=== PATIENT | female | born 1950 | race Caucasian/White ===

== ENCOUNTER 2017-03-02 10:37 | Observation (INO) | payer MEDICARE, BC ==
[~2017-03-02] VITALS: Ht 152.4 cm; Wt 65.0 kg
[~2017-03-02 10:37] MED LIST: AMLO1CAP15 PO; ASPI81TA3 PO; CILO100T PO; CIPR500T4 PO; CLON-379 PO; FENO134C PO; METR250T PO; MONT10TA24 PO; NO HOME MEDICATIONS; SERT50TA PO; ZOLP5TAB7 PO
[2017-03-02] MEDS ORDERED: morphine 4 MG/ML VIAL IV STA (10:49)
[2017-03-02] MEDS ORDERED: ONDANSETRON 4 MG INJ IV STA (10:49)
[2017-03-02 11:35] LABS: BASOPHILS % 0.9 % (0.0-2.0); EOSINOPHILS % 1.2 % (0.0-7.0); HEMATOCRIT 36.1 % (37.0-47.0); HEMOGLOBIN 11.9 g/dl (12.0-16.0); LYMPHOCYTES # 1.6 10^3/ul (0.8-2.9); LYMPHOCYTES % 45.3 % (15.0-51.0); MEAN CORPUSCULAR HEMOGLOBIN 28.4 pg (29.0-33.0); MEAN CORPUSCULAR VOLUME 86.2 fl (82.0-101.0); MONOCYTE # 0.2 10^3/ul (0.3-0.9); MONOCYTES % 6.1 % (0.0-11.0); NEUTROPHILS % 42.4 % (39.0-77.0); PLATELET COUNT 230 10^3/UL (140-415); RED BLOOD COUNT 4.19 10^6/ul (4.20-5.40); RED CELL DISTRIBUTION WIDTH 15.6 % (11.5-14.5); WHITE BLOOD COUNT 3.4 10^3/ul (4.8-10.8)
[2017-03-02 11:42] LABS: ADD UMIC NO; UR ASCORBIC ACID NEGATIVE (NEGATIVE); UR BILIRUBIN (Dip) NEGATIVE (NEGATIVE); UR BLOOD (Dip) NEGATIVE (NEGATIVE); UR CLARITY CLEAR (CLEAR); UR COLOR COLORLESS (YELLOW); UR GLUCOSE (Dip) 1+ mg/dL (NEGATIVE); UR KETONES (Dip) NEGATIVE (NEGATIVE); UR LEUKOCYTE ESTERASE (Dip) NEGATIVE Leu/ul (NEGATIVE); UR NITRITE (Dip) NEGATIVE (NEGATIVE); UR SPECIFIC GRAVITY (Dip) 1.003 (1.003-1.030); UR TOTAL PROTEIN (Dip) NEGATIVE (NEGATIVE); UR UROBILINOGEN (Dip) NEGATIVE (NEGATIVE)
[2017-03-02 11:58] LABS: INR 0.84; PROTIME 11.5 Sec (12.2-14.2); PT RATIO 0.9
[2017-03-02 11:59] LABS: PARTIAL THROMBOPLASTIN TIME 25.3 Sec (25.0-35.0)
[2017-03-02 12:01] LABS: ALANINE AMINOTRANSFERASE 28 IU/L (13-69); ALBUMIN 4.2 g/dl (3.3-4.9); ALBUMIN/GLOBULIN RATIO 1.68; ALKALINE PHOSPHATASE 73 IU/L (42-121); ANION GAP 21 (8-16); ASPARTATE AMINO TRANSFERASE 23 IU/L (15-46); BILIRUBIN,INDIRECT 0.5 mg/dl (0-1.1); BILIRUBIN,TOTAL 0.5 mg/dl (0.2-1.3); BLOOD UREA NITROGEN 11 mg/dl (7-20); CALCIUM 9.7 mg/dl (8.4-10.2); CARBON DIOXIDE 24 mmol/L (21-31); CHLORIDE 101 mmol/L (97-110); GLUCOSE 204 mg/dl (70-220); POTASSIUM 3.9 mmol/L (3.5-5.1); SODIUM 142 mmol/L (135-144); TOTAL PROTEIN 6.7 g/dl (6.1-8.1)
[2017-03-02] MEDS ORDERED: METO50TA16 PO (12:05)
[2017-03-02] MEDS ORDERED: HYDR-3671 PO (12:05)
[2017-03-02] MEDS ORDERED: IBUP800T25 PO (12:06)
[2017-03-02] MEDS ORDERED: METF500T4 PO (12:06)
[2017-03-02] MEDS ORDERED: LORA1TAB PO (12:07)
[2017-03-02] MEDS ORDERED: AMLO1CAP14 PO (12:07)
[2017-03-02] MEDS ORDERED: MECL-77 PO (12:07)
--- NOTE | 2017-03-02 12:12 | RADRPT ---
PROCEDURE: XR Chest. CLINICAL INDICATION: Chest pain TECHNIQUE: A single portable view of the chest was obtained. COMPARISON: 05/29/2016 FINDINGS: The right chest wall port is seen with the tip in the atrial caval junction. The cardiomediastinal silhouette is within normal limits. The lungs and pleural spaces are clear. The soft tissues and o sseous structures are unremarkable. IMPRESSION: No acute cardiopulmonary disease. RPTAT: HPNM Physician Ana Date Time Electronically viewed and signed by Physician Ana on 03/02/2017 12:11 /
[2017-03-02 12:17] LABS: TROPONIN-I < 0.012 ng/ml (0.00-0.12)
[2017-03-02] MEDS ORDERED: SOD CHLORIDE 0.9% 100 ML ONE (13:03)
[2017-03-02] MEDS ORDERED: IOHEXOL 100 ML ONE (13:03)
--- NOTE | 2017-03-02 13:10 | ERA ---
ER Documentation Chief Complaint Date/Time DATE: 03/02/17 TIME: 13:04 Chief Complaint BIBA FOR NON RADIATING CP STARTED TODAY HPI 66-year-old female with a history of hypertension, diabetes, and recently diagnosed esophageal cancer stage II on chemotherapy presenting with gradual onset chest pain, substernal, initially radiating to her back and bilateral shoulders, 10 out of 10. She received aspirin and nitroglycerin in the ambulance with improvement of her pain to 8 out of 10. She denies any radiation at this time but does feel a substernal chest pressure. She has associated shortness of breath. She denies any associated abdominal pain but does endorse nausea without vomiting. No fevers or chills. Per her daughter, the patient is unaware of her diagnosis and asked me to not tell her. ROS All systems reviewed and are negative except as per history of present illness. Medications Home Meds Active Scripts Metronidazole* (Flagyl*) 250 Mg Tablet, 250 MG PO Q8 for 7 Days, #28 TAB Prov:NERY WASHBURN MD 05/31/16 Ciprofloxacin Hcl* (Ciprofloxacin Hcl*) 500 Mg Tablet, 500 MG PO BID@06,18 for 7 Days, #14 TAB Prov:NERY WASHBURN MD 05/31/16 Reported Medications Meclizine Hcl* (Meclizine Hcl*) 25 Mg Tablet, 25 MG PO Q8H Y for DIZZINESS, TAB 03/02/17 Lorazepam* (Lorazepam*) 1 Mg Tablet, 1 MG PO DAILY Y for ANXIETY, #30 TAB 03/02/17 Amlodipine-Benazepril (Amlodipine-Benazepril) 5-40 Mg Capsule, 1 TAB PO DAILY, # 30 TAB 03/02/17 Metformin* (Glucophage*) 500 Mg Tab, 500 MG PO BID WITH MEALS, #30 TAB 03/02/17 Ibuprofen* (Ibuprofen*) 800 Mg Tablet, 800 MG PO Q6H Y for PAIN, TAB 03/02/17 Metoprolol Succinate* (Toprol XL*) 50 Mg Tab.er.24h, 50 MG PO DAILY, #30 TAB 03/02/17 Hydralazine Hcl* (Hydralazine Hcl*) 25 Mg Tab, 25 MG PO Q8, #90 TAB 03/02/17 Sertraline Hcl* (Zoloft*) 50 Mg Tablet, 50 MG PO DAILY, TAB 4/7/15 Aspirin* (Aspirin* Chew) 81 Mg Tab.chew, 81 MG PO DAILY, TAB.CHEW 10/19/14 Cilostazol* (Cilostazol*) 100 Mg Tablet, 100 MG PO BID, TAB 10/19/14 Fenofibrate, Micronized (Fenofibrate) 134 Mg Capsule, 134 MG PO DAILY, CAP 10/19/14 Montelukast Sodium* (Montelukast Sodium*) 10 Mg Tablet, 10 MG PO HS, TAB 10/19/14 Zolpidem Tartrate* (Zolpidem Tartrate*) 5 Mg Tablet, 5 MG PO HS Y, TAB 10/19/14 Clonidine Hcl* (Clonidine Hcl*) 0.1 Mg Tab, 0.1 MG PO Q6 Y for ELEVATED BLOOD PRESSURE, TAB 10/19/14 Amlodipine-Benazepril (Amlodipine-Benazepril) 10-40 Mg Capsule, 1 TAB PO DAILY, TAB 10/19/14 Allergies Allergies: Coded Allergies: No Known Allergy (Verified , 07/04/15) PMhx/Soc History of Surgery: Yes ("ovaries removed") Anesthesia Reaction: No Hx Neurological Disorder: No Hx Respiratory Disorders: Yes (Asthma) Hx Cardiac Disorders: No Hx Psychiatric Problems: No Hx Miscellaneous Medical Probl: No Hx Alcohol Use: No Hx Substance Use: No Hx Tobacco Use: No Smoking Status: Never smoker FmHx Family History: No coronary disease Physical Exam Vitals Vital Signs Date Time Temp Pulse Resp B/P Pulse Ox O2 Delivery O2 Flow Rate FiO2 03/02/17 10:59 Nasal Cannula 2 03/02/17 10:46 98.2 84 20 155/80 98 Physical Exam Const: Tearful, no significant distress, nontoxic Head: Atraumatic Eyes: Normal Conjunctiva ENT: Normal External Ears, Nose and Mouth. Neck: Full range of motion..~ No meningismus. Resp: Clear to auscultation bilaterally Cardio: Right-sided pacemaker palpated. Regular rate and rhythm, no murmurs. 2+ distal pulses in all 4 extremities Abd: Soft, non tender, non distended. No pulsatile abdominal mass. No masses palpated. Normal bowel sounds Skin: No petechiae or rashes Back: No midline or flank tenderness Ext: No cyanosis, or edema. No calf tenderness Neur: Awake and alert and oriented 3, strength and sensations intact, speech normal, cranial nerves intact Psych: Normal Mood and Affect Result Diagram: 03/02/17 1115 03/02/17 1115 Results 24 hrs Laboratory Tests Test 03/02/17 11:10 03/02/17 11:15 Urine Color COLORLESS Urine Clarity CLEAR Urine pH 7.0 Urine Specific [place] 1.003 Urine Ketones NEGATIVEmg/dL Urine Nitrite NEGATIVEmg/dL Urine Bilirubin NEGATIVEmg/dL Urine Urobilinogen NEGATIVEmg/dL Urine Leukocyte Esterase NEGATIVELeu/ul Urine Hemoglobin NEGATIVEmg/dL Urine Glucose 1+mg/dL Urine Total Protein NEGATIVEmg/dl White Blood Count 3.410^3/ul Red Blood Count 4.1910^6/ul Hemoglobin 11.9g/dl Hematocrit 36.1% Mean Corpuscular Volume 86.2fl Mean Corpuscular Hemoglobin 28.4pg Mean Corpuscular Hemoglobin Concent 33.0g/dl Red Cell Distribution Width 15.6% Platelet Count 64159^3/UL Mean Platelet Volume 11.0fl Neutrophils % 42.4% Lymphocytes % 45.3% Monocytes % 6.1% Eosinophils % 1.2% Basophils % 0.9% Nucleated Red Blood Cells % 0.0/100WBC Neutrophils # (Manual) 110^3/ul Lymphocytes # 1.610^3/ul Monocytes # 0.210^3/ul Eosinophils # 0.010^3/ul Basophils # 0.010^3/ul Nucleated Red Blood Cells # 0.010^3/ul Prothrombin Time 11.5Sec Prothrombin Time Ratio 0.9 INR International Normalized Ratio 0.84 Activated Partial Thromboplast Time 25.3Sec Sodium Level 142mmol/L Potassium Level 3.9mmol/L Chloride Level 101mmol/L Carbon Dioxide Level 24mmol/L Anion Gap 21 Blood Urea Nitrogen 11mg/dl Creatinine 0.70mg/dl Glucose Level 204mg/dl Calcium Level 9.7mg/dl Total Bilirubin 0.5mg/dl Direct Bilirubin 0.00mg/dl Indirect Bilirubin 0.5mg/dl Aspartate Amino Transf (AST/SGOT) 23IU/L Alanine Aminotransferase (ALT/SGPT) 28IU/L Alkaline Phosphatase 73IU/L Troponin I < 0.012ng/ml Total Protein 6.7g/dl Albumin 4.2g/dl Globulin 2.50g/dl Albumin/Globulin Ratio 1.68 Lipase 101U/L Current Medications Medications (Trade) Dose Ordered Sig/Dominick Route PRN Reason Start Time Stop Time Status Last Admin Dose Admin Morphine Sulfate (morphine) 4 mg ONCE STAT IV 03/02/17 10:49 03/02/17 10:51 DC 03/02/17 11:20 Ondansetron HCl (Zofran Inj) 4 mg ONCE STAT IV 03/02/17 10:49 03/02/17 10:51 DC 03/02/17 11:20 IV Flush 10 ml 10 ml STK-MED ONCE .ROUTE 03/02/17 13:03 03/02/17 13:04 DC 03/02/17 13:35 Sodium Chloride 100 ml @ ud STK-MED ONCE .ROUTE 03/02/17 13:03 03/02/17 13:04 DC 03/02/17 13:35 Iohexol (Omnipaque) 100 ml @ ud STK-MED ONCE .ROUTE 03/02/17 13:03 03/02/17 13:04 DC 03/02/17 13:36 Ondansetron HCl (Zofran Inj) 4 mg ER BRIDGE PRN IV NAUSEA AND/OR VOMITING 03/02/17 14:00 03/03/17 13:59 Acetaminophen (Tylenol Tab) 650 mg ER BRIDGE PRN PO MILD PAIN/FEVER 03/02/17 14:00 03/03/17 13:59 Procedures/MDM EMERGENT LABS AND DIAGNOSTIC STUDIES: Lab Results above were reviewed and interpreted by me. CBC: Mild leukopenia, mild anemia CMP: No evidence of electrolyte abnormality, renal failure, hypoglycemia, liver failure, or biliary obstruction Troponin within normal limits UA: no evidence of infection 12-lead EKG was interpreted by Oscar Alanis MD: Normal Sinus Rhythm Normal axis Normal intervals No acute ST or T wave changes suggestive of acute ischemia or STEMI. Radiology Results as interpreted by Radiology below were reviewed by Nubia Alanis MD: Chest x-ray: No acute cardiopulmonary disease. CTPA: No evidence of pulmonary embolism or dissection Initial Nursing notes reviewed. Previous Medical Records requested via the Electronic Health Record. EMERGENCY DEPARTMENT COURSE / MEDICAL DECISION MAKING: Patients symptoms are concerning for a cardiac etiology. Other etiologies considered were PE, aortic dissection, pneumonia, pneumothorax, esophageal rupture. EKG showed no acute ischemia. Initial troponin negative. CXR grossly unremarkable without evidence of pneumomediastinum. I considered esophageal perforation, however I have a low suspicion for this. Also given her history of cancer, CTPA was ordered to evaluate for PE and was negative. Patient is at high risk of adverse events. Upon reevaluation, her pain is improved after morphine. However, Patient is not safe for discharge and will need inpatient monitoring and further evaluation. Further workup will be deferred to the inpatient team. Accepting Care Team: Current data and ongoing care discussed. Time: Time of admission Primary Provider: Dung Kenny Consulting: none Outstanding Data: none Departure Diagnosis: Primary Impression: Chest pain Qualified Code: R07.89 - Other chest pain Condition: Serious VANDA ALANIS MD Mar 02, 2017 13:10
--- NOTE | 2017-03-02 13:36 | RADRPT ---
PROCEDURE: CTA Chest. CLINICAL INDICATION: eval for PE TECHNIQUE: The study was performed utilizing a multidetector CT scanner. Direct spiral 1 mm axial sections were obtained from the thoracic inlet to the upper abdomen with the use of 100 cc of Omnipa que 350 nonionic intravenous contrast material and reformatted at 3 mm. Coronal reformations were ob tained. The images were reviewed on a PACS workstation. CT D I 17 mCi. Dose 259 mCi per centimeter COMPARISON: No prior studies are available for comparison. FINDINGS: There is no central or peripheral pulmonary embolism. Thoracic aorta demonstrates minimal mural mike cification with no dissection or aneurysm. No pleural or pericardial effusion is seen. There is no hilar or mediastinal adenopathy or mass. No lung infiltrate or nodule is present. There is a righ t IJ Port-A-Cath with the tip in the superior vena cava. No upper abdominal or adrenal mass is visualized. There is no axillary, supraclavicular or internal mammary chain adenopathy. No lytic or blastic lesions are seen. IMPRESSION: No pulmonary embolism. No aortic dissection or aneurysm. No lung infiltrate or mass. .Eliot Pierre MD, Date Time Electronically viewed and signed by .Eliot Pierre MD, on 03/02/2017 13:35 .A/
[2017-03-02] MEDS ORDERED: ONDANSETRON 4 MG INJ IV PRN ×2 (14:00→15:00)
[2017-03-02] MEDS ORDERED: ACETAMINOPHEN 325 MG TAB PO PRN ×2 (14:00→15:00)
[2017-03-02] MEDS ORDERED: NACL 0.9% 3 ML SYG IV SCH (15:00)
[2017-03-02] MEDS ORDERED: ACETAMINOPHEN 650 MG SUPP PR PRN (15:00)
[2017-03-02] MEDS ORDERED: GLUCOSE GEL 15 GRAM TUBE BUCCAL PRN (15:00)
[2017-03-02] MEDS ORDERED: ZOLPIDEM 5 MG TAB PO PRN (15:00)
[2017-03-02] MEDS ORDERED: GLUCAGON 1 MG INJ IM PRN (15:00)
[2017-03-02] MEDS ORDERED: HYDROCODONE/APAP (5/325) TAB PO PRN ×2 (15:00)
[2017-03-02] MEDS ORDERED: GLUCOSE GEL 15 GRAM TUBE PO PRN ×2 (15:00)
[2017-03-02] MEDS ORDERED: DEXTROSE 50% 50 ML SYRINGE IV PRN ×2 (15:00)
[2017-03-02] MEDS ORDERED: DOCUSATE SODIUM 100 MG CAP PO PRN (15:00)
[2017-03-02] MEDS ORDERED: IBUPROFEN 800 MG TAB PO PRN (15:00)
[2017-03-02] MEDS ORDERED: MAGNESIUM HYDROXIDE 30ML CUP PO PRN (15:00)
[2017-03-02] MEDS ORDERED: morphine 2 MG INJ IV PRN (15:00)
[2017-03-02] MEDS ORDERED: MECLIZINE 25 MG TAB PO PRN (15:00)
[2017-03-02] MEDS ORDERED: BISACODYL 10 MG SUPP PR PRN (15:00)
--- NOTE | 2017-03-02 15:22 | HP ---
Date/Time of Note Date/Time of Note DATE: 03/02/17 TIME: 15:14 Assessment/Plan VTE Prophylaxis VTE Prophylaxis Intervention: SCD's Lines/Catheters IV [facility]ter Type [facility]from [facility] Saline Lock Assessment/Plan Chief Complaint/Hosp Course Impression and plan 1. Chest pain. Rule out ACS. Troponins to be monitored. We will follow-up results. Initial were negative. Follow-up on echocardiogram. Box Estimator follow. 2. Essential hypertension. Medications to be adjusted. Elevated at this time. 3. Dyslipidemia. Follow-up on fasting lipid panel. Continue on antilipid medication 4. Diabetes. Follow-up on A1c. Continue insulin regimen. 5. History of gastric cancer. Patient tentatively planned for chemotherapy On March 04, 2017. Patient follow-up with her oncologist Dr. Rucker 6. Anemia and leukopenia secondary to #5. Patient on chemotherapy. Monitor level for now. Stable at present. Admission process 40 minutes Discussed plan of care with Dr. Badillo Problems: HPI/ROS Admit Date/Time Admit Date/Time Hx of Present Illness This is a 66-year-old female with history of asthma, hypertension, dyslipidemia , diabetes, reported new diagnosis of gastric cancer stage II (follows up with Dr. Escobar)who did come to [facility] due to reports of chest pain. Patient did report that her chest pain started at 11 AM this morning. She reported that she was in her chest pain was substernal and radiated to her back or shoulders and was pressure-like and squeezing-like in nature. She reports her pain was 10 out of 10 and reported that this is the first time this ever happened to her. No reports of shortness of breath associated. She subsequently went to [facility] for further evaluation. Upon examination Patient was noted with initial troponin that was negative. Additionally her chest x-ray showed no acute cardiopulmonary disease process and CTA of her chest also showed no pulmonary embolism or aortic dissection or aneurysm and no lung infiltrate or mass. Patient also initially came in with a blood pressure as high as 171/61. Initial BMP unremarkable and she was noted to be slightly leukopenic as well as anemic. Of note patient did have her last chemotherapy about a month ago. Possibility of her anemia is from chemotherapy. We will evaluate her for the aformentioned issues ROS 12 point review of systems obtained and entirely negative except that mentioned in the history of present illness PMH/Family/Social Past Medical History asthma, hypertension, dyslipidemia, diabetes, reported no history of gastric cancer stage II Family History Significant Family History: no pertinent family hx Social History Alcohol Use: none Smoking Status: Never smoker Drug Use: none Exam/Review of Systems Vital Signs Vitals Vital Signs Date Time Temp Pulse Resp B/P Pulse Ox O2 Delivery O2 Flow Rate FiO2 03/02/17 14:40 74 16 171/61 100 Room Air 03/02/17 10:59 2 03/02/17 10:46 98.2 Exam Constitutional: alert, oriented Psych: anxiety Head: normocephalic Neck: No jvd Respiratory: clear to auscultation, normal air movement Gastrointestinal: soft, tender (Minimally on palpation of right lower quadrant) Musculoskeletal: nl extremities to inspection, nl gait and stance Extremities: normal pulses Neurological: DATA STORAGE SPECIALIST II-XII intact, nl mental status, nl speech Labs Result Diagram: 03/02/17 1115 03/02/17 1115 Medications Medications Current Medications Aspirin (Aspirin) 81 mg DAILY PO ; Start 03/03/17 at 09:00; Status UNV Cilostazol (Pletal) 100 mg BID PO ; Start 03/02/17 at 21:00; Status UNV Hydralazine HCl (Apresoline) 25 mg Q8 PO ; Start 03/02/17 at 22:00; Status UNV Ibuprofen (Motrin) 800 mg Q6H PRN PO PAIN; Start 03/02/17 at 15:00; Status UNV Meclizine HCl (Antivert) 25 mg Q8H PRN PO DIZZINESS; Start 03/02/17 at 15:00; Status UNV Metoprolol Succinate (Toprol Xl) 50 mg DAILY PO ; Start 03/03/17 at 09:00; Status UNV Montelukast Sodium (Singulair) 10 mg HS PO ; Start 03/02/17 at 21:00; Status UNV Sertraline HCl (Zoloft) 50 mg DAILY PO ; Start 03/03/17 at 09:00; Status UNV Zolpidem Tartrate (Ambien) 5 mg HS PRN PO insomnia; Start 03/02/17 at 15:00; Status UNV Miscellaneous Information 1 tab DAILY PO ; Start 03/03/17 at 09:00; Status UNV Miscellaneous Information 134 mg DAILY PO ; Start 03/03/17 at 09:00; Status UNV Benazepril HCl (Lotensin) 40 mg DAILY PO ; Start 03/03/17 at 09:00; Status UNV Amlodipine Besylate (Norvasc) 5 mg DAILY PO ; Start 03/03/17 at 09:00; Status UNV Ondansetron HCl (Zofran Inj) 4 mg Q6H PRN IV NAUSEA AND/OR VOMITING; Start at 15:00; Status UNV Acetaminophen (Tylenol Tab) 650 mg Q6H PRN PO PAIN LEVEL 1-3 OR FEVER; Start at 15:00; Status UNV Acetaminophen (Tylenol Supp) 650 mg Q6H PRN [place] PAIN LEVEL 1-3 OR FEVER; Start 03/02/17 at 15:00; Status UNV Acetaminophen/ Hydrocodone Bitart ([place] (5/325)) 1 tab Q6H PRN PO MODERATE PAIN LEVEL 4-6; Start 03/02/17 at 15:00; Status UNV Acetaminophen/ Hydrocodone Bitart ([place] (5/325)) 2 tab Q6H PRN PO SEVERE PAIN LEVEL 7-10; Start 03/02/17 at 15:00; Status UNV Morphine Sulfate (morphine) 2 mg Q4H PRN IV SEVERE PAIN LEVEL 7-10; Start 03/02 at 15:00; Status UNV Docusate Sodium (Colace) 100 mg Q12H PRN PO CONSTIPATION; Start 03/02/17 at 15: 00; Status UNV Magnesium Hydroxide (Milk Of Mag) 30 ml DAILY PRN PO CONSTIPATION; Start at 15:00; Status UNV Bisacodyl (Dulcolax Supp) 10 mg DAILY PRN [place] CONSTIPATION; Start 03/02/17 at 15 :00; Status UNV Pantoprazole (Protonix Iv) 40 mg DAILY@06 IV ; Start 03/03/17 at 06:00; Status UNV RICHARD MARTINEZ Mar 02, 2017 15:22 RICHARD MARTINEZ Mar 02, 2017 15:22
[2017-03-02 16:15] VITALS: BP 137/65; PULSE 60; RESP 16
[2017-03-02 16:24] VITALS: PULSE 66
[2017-03-02 16:35] VITALS: Ht 152.4 cm; Wt 65.0 kg
[2017-03-02] MEDS: INSULIN ASPART [NOVOLOG] 3 ML PEN SC SCH ×2 (17:13→21:00)
[2017-03-02 18:06] LABS: CREATINE KINASE 59 IU/L (23-200)
[2017-03-02 18:41] LABS: CK-MB < 0.22 ng/ml (0.0-2.4); TROPONIN-I < 0.012 ng/ml (0.00-0.12)
[2017-03-02 20:05] VITALS: PULSE 68
[2017-03-02] MEDS ORDERED: MONTELUKAST 10 MG TAB PO SCH (21:00)
[2017-03-02 21:22] VITALS: BP 133/73; RESP 16
[2017-03-02] MEDS: CILOSTAZOL 100 MG TAB PO SCH (21:30)
[2017-03-02 23:59] LABS: CREATINE KINASE 50 IU/L (23-200)
[2017-03-03] VITALS (10 sets, daily range): BP systolic 99–129; BP diastolic 55–59; PULSE 66–79; RESP 16–81
[2017-03-03 00:15] LABS: CK-MB < 0.22 ng/ml (0.0-2.4); TROPONIN-I < 0.012 ng/ml (0.00-0.12)
[2017-03-03] MEDS ORDERED: ACCU-CHEK XX SCH (02:00)
[2017-03-03] MEDS ORDERED: PANTOPRAZOLE 40 MG INJ IV SCH (06:00)
[2017-03-03 07:37] LABS: BASOPHILS % 1.2 % (0.0-2.0); EOSINOPHILS # 0.1 10^3/ul (0.0-0.5); EOSINOPHILS % 2.1 % (0.0-7.0); HEMATOCRIT 33.8 % (37.0-47.0); HEMOGLOBIN 10.9 g/dl (12.0-16.0); LYMPHOCYTES # 1.3 10^3/ul (0.8-2.9); MEAN CORPUSCULAR HEMOGLOBIN 27.9 pg (29.0-33.0); MEAN CORPUSCULAR HGB CONC 32.2 g/dl (32.0-37.0); MEAN CORPUSCULAR VOLUME 86.4 fl (82.0-101.0); MONOCYTE # 0.4 10^3/ul (0.3-0.9); MONOCYTES % 13.4 % (0.0-11.0); NEUTROPHILS % 43.1 % (39.0-77.0); PLATELET COUNT 217 10^3/UL (140-415); RED BLOOD COUNT 3.91 10^6/ul (4.20-5.40); RED CELL DISTRIBUTION WIDTH 15.9 % (11.5-14.5); WHITE BLOOD COUNT 3.3 10^3/ul (4.8-10.8)
[2017-03-03 07:59] LABS: ALBUMIN 3.6 g/dl (3.3-4.9); ALBUMIN/GLOBULIN RATIO 1.8; BILIRUBIN,INDIRECT 0.5 mg/dl (0-1.1); BILIRUBIN,TOTAL 0.5 mg/dl (0.2-1.3); CALCIUM 9.3 mg/dl (8.4-10.2); CREATININE 0.89 mg/dl (0.44-1.00); MAGNESIUM 2.1 mg/dl (1.7-2.5); PHOSPHORUS 4.8 mg/dl (2.5-4.9); TOTAL PROTEIN 5.6 g/dl (6.1-8.1)
[2017-03-03] MEDS: INSULIN ASPART [NOVOLOG] 3 ML PEN SC SCH ×2 (08:00→12:00)
[2017-03-03 08:29] LABS: THYROID STIMULATING HORMONE 2.74 MIU/L (0.465-4.680)
[2017-03-03] MEDS ORDERED: ASPIRIN 81 MG TAB PO SCH (09:00)
[2017-03-03] MEDS ORDERED: FENOFIBRATE 145 MG TAB PO SCH (09:00)
[2017-03-03] MEDS ORDERED: BENAZEPRIL 40 MG TAB PO SCH (09:00)
[2017-03-03] MEDS ORDERED: SERTRALINE 50 MG TAB PO SCH (09:00)
[2017-03-03] MEDS ORDERED: METOPROLOL (XL) 50 MG TAB PO SCH (09:00)
[2017-03-03] MEDS ORDERED: AMLODIPINE 5 MG TAB PO SCH ×2 (09:00)
[2017-03-03] MEDS: CILOSTAZOL 100 MG TAB PO SCH (09:07)
[2017-03-03] MEDS ORDERED: PANT40TA3 PO (09:38)
[2017-03-03] MEDS ORDERED: AMLO1CAP14 PO (09:38)
--- NOTE | 2017-03-03 09:43 | PDOCDIS ---
Discharge Instructions DIAGNOSIS Discharge Diagnosis 1. Atypical chest pain 2. Essential hypertension 2. Discontinue 4. History of diabetes 5. History of gastric cancer 5. Anemia and leukopenia secondary to #5 CONDITION Patient Condition: Stable HOME CARE INSTRUCTIONS: Special Diet: 1800 calorie, carbohydrate controlled FOLLOW UP/APPOINTMENTS Follow-up Plan 1. Follow up with Dr. Escobar on 03/04/17 RICHARD MARTINEZ Mar 03, 2017 09:43
[2017-03-04] MEDS ORDERED: PANTOPRAZOLE (EC) 40 MG TAB PO SCH (06:00)
--- NOTE | 2017-03-04 08:15 | RADRPT ---
Echocardiogram Report Patient Name: ROSLYN JACKSON Gender: Female Date: 1950 Study Date: 03-Mar-2017 Power Systems Engineer: [place] Location: Ref. Physician: RICHARD MARTINEZ Quality: Adequate Procedures: Transthoracic echocardiogram with complete 2D, M-Mode, and Doppler examination. Indications: Chest Pain. 2D/M Mode Doppler Measurement Value Normal Ranges Measurement Value Normal Ranges AoR Diam MM 2.8 cm AV Peak Benjamin 1.8 m/sec LVIDd 2D 3.5 3.5 - 5.6 cm AV Peak PG 12.5 mmHg LVIDs 2D 1.9 2.1 - 4.1 cm LVOT Peak Benjamin 1.2 m/sec LVPWd 2D 1.2 0.6 - 1.1 cm LVOT Peak PG 5.5 mmHg IVSd 2D 1.2 0.6 - 1.1 cm MV E Peak Benjamin 0.5 m/sec EDV 2D 49.2 cm3 MV A Peak Benjamin 0.8 m/sec ESV 2D 6.9 cm3 MV E/A 0.6 LA Dimen 2D 3.1 2.3 - 4.0 cm MV Decel Time 300 msec MV Decel Garvin 2 MV E/A 0.6 PV Peak Benjamin 1.3 m/sec PV Peak PG 7.0 mmHg Findings Left Ventricle: Hyperdynamic left ventricular systolic function. Normal left ventricular cavity size. Mild concentric left ventricular hypertrophy. Ejection fraction is visually estimated at 70 %. Tissue Doppler/Mitral Doppler indices are consistent with impaired relaxation (Stage I diastolic dysfunction). E/E`=4. E`=0 cm/s. Right Ventricle: Normal right ventricular size. Normal right ventricular systolic function. Left Atrium: The left atrium is normal in size. Right Atrium: The right atrium is normal in size. Atrial Septum: Normal atrial septum. Mitral Valve: Normal appearance of the mitral valve. No mitral valve regurgitation is seen. Aortic Valve: No significant aortic stenosis or insufficiency. Normal trileaflet aortic valve structure. Tricuspid Valve: Normal appearance of the tricuspid valve. There is trace tricuspid regurgitation. Pulmonic Valve: Normal pulmonic valve appearance. No evidence of pulmonic regurgitation. Pericardium: Normal pericardium with no significant pericardial effusion. Aorta: Normal aortic root. IVC: Normal size and normal respiratory collapse consistent with normal right atrial pressure. Pulmonary Artery: Normal pulmonary artery size. Conclusions 1.Hyperdynamic left ventricular systolic function. Normal left ventricular cavity size. Mild concentric left ventricular hypertrophy. Ejection fraction is visually estimated at 70 %. Tissue Doppler/Mitral Doppler indices are consistent with impaired relaxation (Stage I diastolic dysfunction). E/E`=4. E`=0 cm/s. 2.Normal appearance of the mitral valve. No mitral valve regurgitation is seen. 3.No significant aortic stenosis or insufficiency. Normal trileaflet aortic valve structure. 4.Normal appearance of the tricuspid valve. There is trace tricuspid regurgitation. 5.Normal size and normal respiratory collapse consistent with normal right atrial pressure. Electronically Signed By: Yeison Tao 04-Mar-2017 08:14:54 -0700 Patient Name: ROSLYN JACKSON Study Date: 03-Mar-2017 [id number]
--- NOTE | 2017-03-05 16:58 | DS ---
Date/Time of Note Date/Time of Note DATE: 03/05/17 TIME: 16:48 Discharge Summary Admission/Discharge Info Admit Date/Time Mar 02, 2017 at 13:59 Discharge Date/Time Mar 03, 2017 at 18:50 Discharge Diagnosis 1. Atypical chest pain 2. Essential hypertension 2. Discontinue 4. History of diabetes 5. History of gastric cancer 5. Anemia and leukopenia secondary to #5 Patient Condition: Stable Hx of Present Illness This is a 66-year-old female with history of asthma, hypertension, dyslipidemia , diabetes, reported new diagnosis of gastric cancer stage II (follows up with Dr. Escobar)who did come to [facility] due to reports of chest pain. Patient did report that her chest pain started at 11 AM this morning. She reported that she was in her chest pain was substernal and radiated to her back or shoulders and was pressure-like and squeezing-like in nature. She reports her pain was 10 out of 10 and reported that this is the first time this ever happened to her. No reports of shortness of breath associated. She subsequently went to [facility] for further evaluation. Upon examination Patient was noted with initial troponin that was negative. Additionally her chest x-ray showed no acute cardiopulmonary disease process and CTA of her chest also showed no pulmonary embolism or aortic dissection or aneurysm and no lung infiltrate or mass. Patient also initially came in with a blood pressure as high as 171/61. Initial BMP unremarkable and she was noted to be slightly leukopenic as well as anemic. Of note patient did have her last chemotherapy about a month ago. Possibility of her anemia is from chemotherapy. We will evaluate her for the aformentioned issues Hospital Course This is a 66-year-old female with history of asthma, hypertension, dyslipidemia , diabetes, new history of gastric cancer stage II, who came to [facility] due to reports of chest pain. Patient did report her chest pain started around 11 AM on the morning of her admission. She reported that her chest pain substernal and radiated to her back and did have some burning kind of sensation that was also mixed with pressure-like feelings. She reported that this is the first time this ever happened to her. She did come to [facility] for further evaluation. Upon examination she had a chest x-ray that was negative for any acute cardiopulmonary process. CTA of her chest was also negative for any pulmonary embolism or aortic dissection. She initially had a blood pressure as high as 171/61. She did have serial troponins drawn which were all additionally her echocardiogram did show her to have an EF of 70%. ACS was ruled out and likely patient's chest pain was from acid reflux. During the course of stay she did improve. She was resumed on antihypertensives for hypertension and insulin for diabetes. Patient and family were instructed to follow-up with oncologist chemotherapy regimen per her oncologist on March 04, 2017. The plan of care was discussed with the patient and patient did verbalize her understanding. On the day of discharge patient was in stable condition Discussed plan of care with Dr. Badillo [facility] Active Scripts Pantoprazole* (Protonix*) 40 Mg Tablet.dr, 40 MG PO DAILY, #30 TAB Prov:RICHARD MARTINEZ 03/03/17 Amlodipine-Benazepril (Amlodipine-Benazepril) 5-40 Mg Capsule, 1 TAB PO DAILY, # 30 TAB Prov:RICHARD MARTINEZ 03/03/17 Metronidazole* (Flagyl*) 250 Mg Tablet, 250 MG PO Q8 for 7 Days, #28 TAB Prov:NERY WASHBURN MD 05/31/16 Ciprofloxacin Hcl* (Ciprofloxacin Hcl*) 500 Mg Tablet, 500 MG PO BID@06,18 for 7 Days, #14 TAB Prov:NERY WASHBURN MD 05/31/16 Reported Medications Meclizine Hcl* (Meclizine Hcl*) 25 Mg Tablet, 25 MG PO Q8H Y for DIZZINESS, TAB 03/02/17 Lorazepam* (Lorazepam*) 1 Mg Tablet, 1 MG PO DAILY Y for ANXIETY, #30 TAB 03/02/17 Metformin* (Glucophage*) 500 Mg Tab, 500 MG PO BID WITH MEALS, #30 TAB 03/02/17 Ibuprofen* (Ibuprofen*) 800 Mg Tablet, 800 MG PO Q6H Y for PAIN, TAB 03/02/17 Metoprolol Succinate* (Toprol XL*) 50 Mg Tab.er.24h, 50 MG PO DAILY, #30 TAB 03/02/17 Hydralazine Hcl* (Hydralazine Hcl*) 25 Mg Tab, 25 MG PO Q8, #90 TAB 03/02/17 Sertraline Hcl* (Zoloft*) 50 Mg Tablet, 50 MG PO DAILY, TAB 10/19/14 Aspirin* (Aspirin* Chew) 81 Mg Tab.chew, 81 MG PO DAILY, TAB.CHEW 10/19/14 Cilostazol* (Cilostazol*) 100 Mg Tablet, 100 MG PO BID, TAB 10/19/14 Fenofibrate, Micronized (Fenofibrate) 134 Mg Capsule, 134 MG PO DAILY, CAP 10/19/14 Montelukast Sodium* (Montelukast Sodium*) 10 Mg Tablet, 10 MG PO HS, TAB 10/19/14 Zolpidem Tartrate* (Zolpidem Tartrate*) 5 Mg Tablet, 5 MG PO HS Y, TAB 10/19/14 Clonidine Hcl* (Clonidine Hcl*) 0.1 Mg Tab, 0.1 MG PO Q6 Y for ELEVATED BLOOD PRESSURE, TAB 10/19/14 Discontinued Reported Medications Amlodipine-Benazepril (Amlodipine-Benazepril) 10-40 Mg Capsule, 1 TAB PO DAILY, TAB 10/19/14 Follow-up Plan 1. Follow up with your oncologist on 03/04/17 Primary Care Provider Keanu Escobar Time spent on discharge: > 30 minutes RICHARD MARTINEZ Mar 05, 2017 16:58
== END 2017-03-03 18:50 | disposition home or self-care (01) ==
LOC: E/R 10:37 → MS4 13:59
PROVIDERS: ADMIT Internal Medicine; ATTEND Internal Medicine
DX: R07.89 Other chest pain (principal); I10 Essential (primary) hypertension; E11.9 Type 2 diabetes mellitus without complications; C16.9 Malignant neoplasm of stomach, unspecified; J45.909 Unspecified asthma, uncomplicated; Z79.82 Long term (current) use of aspirin; Z79.84 Long term (current) use of oral hypoglycemic drugs
CPT/HCPCS: 36415; 71010; 71275; 80053; 80061; 81003; 82550; 82553; 82962; 83036; 83690; 83735; 84100; 84436; 84443; 84479; 84484; 85025; 85610; 85730; 93005; 93306; 96374; 96375; 99285; C9113; G0378; J1815; J2270; J2405; Q9967